=== PATIENT | female | born 1960 | race Caucasian/White ===

== ENCOUNTER → 2018-02-10 | Outpatient (CLI) | payer BC ==
--- NOTE | 2018-02-10 13:55 | RAD ---
EXAM DESCRIPTION: Elbow, right 3 Views CLINICAL HISTORY: 57 years Female, PAIN IN RIGHT ELBOW COMPARISON: None. TECHNIQUE/FINDINGS: AP lateral and oblique right elbow. Small fracture of the anterior rim of the coronoid process of the proximal ulna. Fracture line is 3 mm from the coronoid tip. Longitudinal fracture in the radial aspect of the radial head extending into the radial neck in the distal direction, and the radiocapitellar joint. Anterior and posterior fat pads are displaced. Overall bone density is decreased. No other loose bodies in the joint spaces or soft tissues. IMPRESSION: 1. Slightly fracture of the radial head in the longitudinal direction involving the radial aspect of the radial head and involving the radiocapitellar joint. Anterior posterior fat pad displacement body fusion. 2. Small fracture of the anterior aspect of the coronoid process of the ulna. Electronically signed by: Geoffrey Bazan MD 02/10/2018 1:54 PM CDT
== END ==
LOC: RAD 09:29
PROVIDERS: ATTEND Orthopaedic Surgery
DX: S52.121A Displaced fracture of head of right radius, initial encounter for closed fracture (principal); S52.202A Unspecified fracture of shaft of left ulna, initial encounter for closed fracture

== ENCOUNTER → 2018-02-16 | Outpatient (CLI) | payer BC ==
--- NOTE | 2018-02-16 11:47 | CT ---
Study: CT of the Right Elbow. Indication: RAD HEAD FX Technique: Axial CT of the right elbow was performed without contrast. Coronal and sagittal reformats performed This exam was performed according to our departmental dose-optimization program, which includes automated exposure control, adjustment of the mA and/or kV according to patient size and/or use of iterative reconstruction technique. Radiographs February 10, 2018. Findings: A markedly comminuted radial head fracture noted. There is a dominant fracture fragment involving the majority of the radial head articular surface which is displaced in the posterior direction and lies along the posterior margin of the capitellum. This fragment measures up to 17 mm. Along its anterior/distal margin there is an additional 9 mm fracture fragment. The posterior two thirds of the radial head articular surface are significantly disrupted. No evidence of dislocation at this time. A likely remote ununited fracture of the tip of the coronoid process noted but ultimately a indeterminate. Joint space narrowing and tiny joint line osteophytes noted throughout the elbow with associated moderate size elbow effusion. Subcutaneous edema posterior aspect of the elbow. Impression: Comminuted nondisplaced radial head fracture as detailed above. 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 Electronically signed by: Walt De Jesus MD 02/16/2018 11:45 AM BAGMAN/WOMAN
== END ==
LOC: CT 09:00
PROVIDERS: ATTEND Orthopaedic Surgery
DX: S52.124A Nondisplaced fracture of head of right radius, initial encounter for closed fracture (principal); M19.021 Primary osteoarthritis, right elbow

== ENCOUNTER 2018-02-23 05:43 | Observation (INO) | payer BC ==
--- NOTE | 2018-02-22 08:14 | HP ---
CHIEF COMPLAINT: Right elbow pain. HISTORY OF PRESENT ILLNESS: Lizzette is a 49-year-old female with a history of a fall that occurred on 02/06/18. She had the acute onset of pain in the elbow at that time. She first presented to me on 02/10/18 and we ordered a CT scan. Unfortunately, there has been some difficulty getting a CT scan until recently. The CT scan does show a large fragment of the radial head displaced and lodged slightly posterior. We talked about this and the nature of the injury. We discussed her options. After discussing the risks, benefits and alternatives to operative therapy, the patient has given informed consent for radial head replacement. PAST SURGICAL HISTORY: 1. Thyroidectomy. 2. Nephrectomy. MEDICATIONS: 1. Metformin. 2. Hydrochlorothiazide. 3. Metoprolol. 4. Levothyroxine. 5. Atorvastatin. 6. Omeprazole. 7. Amitriptyline. ALLERGIES: NO KNOWN DRUG ALLERGIES. CODE STATUS: Full code. IMMUNIZATIONS: Up to date. FAMILY HISTORY: None pertinent to today's complaint. SOCIAL HISTORY: The patient does not drink, smoke or use any illicit drugs. REVIEW OF SYSTEMS: Negative except as indicated in the History of Present Illness. PHYSICAL EXAMINATION: VITAL SIGNS: Blood pressure 106/56. Pulse 65. Height 5'3". Weight 170 pounds. MENTAL STATUS: The patient is awake, alert, and is able to give a good history and participate in the physical. The patient is oriented to person, place and time. SKIN: Normal tone and turgor. MUSCULOSKELETAL: She has bruising along the lateral aspect of the elbow. She has difficulty with full extension and flexion is now to about 100 degrees. Sensation is intact. She has full range of motion of the digits as well as the wrist. The compartments of the forearm are soft. IMAGING: X-rays show a comminuted radial head fracture. CT scan with 3D reconstruction does show large articular fragment displaced near the capitellum. ASSESSMENT: 1. Comminuted radial head fracture. PLAN: The plan at this point is for radial head replacement. We have discussed the risks, benefits, and alternatives to that and the patient has given informed consent. #[id number] MTDD
--- NOTE | 2018-02-22 15:27 | RAD ---
EXAM DESCRIPTION: Chest,2 Views CLINICAL HISTORY: SURGICAL PREOP COMPARISON: None TECHNIQUE: PA/lateral FINDINGS: Mass behind the heart is consistent with a hiatal hernia. Right hemidiaphragm is elevated. Heart size is normal with normal pulmonary vascularity. No pleural effusion or pneumothorax. Lungs are clear with no consolidating infiltrate. Lateral view shows intact sternum and T-spine. Degenerative changes are seen in the shoulders. IMPRESSION: No acute process is identified in the chest. Electronically signed by: Cipriano Garcia MD 02/22/2018 3:25 PM TAG MAKER
[2018-02-23] MEDS ORDERED: DEXAMETHASONE INJ 10 MG/ML VIAL ONE (07:00)
[2018-02-23] MEDS ORDERED: PROPOFOL 200 MG/20 ML VIAL IV ONE (07:00)
[2018-02-23] MEDS ORDERED: LIDOCAINE 1% 10 ML VIAL INJ ONE (07:00)
[2018-02-23] MEDS ORDERED: raNITIdine HCL INJ 25 MG/ML VIAL ONE (07:00)
[2018-02-23] MEDS ORDERED: HYDROCORTISONE SOD SUCC INJ 100 MG/2 ML VIAL ONE (07:00)
[2018-02-23] MEDS ORDERED: METOCLOPRAMIDE HCL INJ 10 MG/2 ML VIAL ONE (07:00)
[2018-02-23] MEDS ORDERED: SODIUM CHL 0.9% 100ML MINI-BAG 100 ML IVPB ONE (08:33)
[2018-02-23] MEDS ORDERED: SODIUM CHLORIDE 0.9% 250ML 250 ML ONE ×2 (08:33→20:25)
[2018-02-23] MEDS ORDERED: VANCOMYCIN HCL INJ 1,000 MG VIAL IVPB ONE ×2 (08:33→20:26)
[2018-02-23] MEDS ORDERED: ceFAZolin SODIUM 1 GM VIAL ONE ×2 (08:33→10:02)
[2018-02-23] MEDS ORDERED: LACTATED RINGERS 1,000 ML ONE (08:33)
[2018-02-23] MEDS ORDERED: CYCLOBENZAPRINE HCL 10 MG TAB PO PRN (09:33)
[2018-02-23] MEDS ORDERED: BISACODYL SUPPOSITORY 10 MG PR PRN (09:33)
[2018-02-23] MEDS ORDERED: TEMAZEPAM 15 MG CAP PO PRN (09:33)
[2018-02-23] MEDS ORDERED: ZOLPIDEM TARTRATE 5 MG TAB PO PRN (09:33)
[2018-02-23] MEDS ORDERED: BENZOCAINE-MENTH LOZ (CEPACOL) 1 EA LOZ MT PRN (09:33)
[2018-02-23] MEDS ORDERED: MAGNESIUM HYDROXIDE 30 ML UD PO PRN (09:33)
[2018-02-23] MEDS ORDERED: ACETAMINOPHEN 325 MG TAB PO PRN (09:33)
[2018-02-23] MEDS ORDERED: ALUMINUM & MAGNESIUM HYDROXIDE 30 ML UD PO PRN (09:33)
[2018-02-23] MEDS ORDERED: MORPHINE SULFATE INJ 10 MG/ML VIAL IM PRN (09:38)
[2018-02-23] MEDS ORDERED: HYDROcodone 5MG/APAP 325MG 1 EA TAB PO PRN (09:40)
[2018-02-23] MEDS ORDERED: MIDAZOLAM INJ 2 MG/2 ML VIAL ONE (10:06)
[2018-02-23] MEDS ORDERED: BUPIVACAINE 0.5% 30 ML VIAL INJ ONE (10:06)
[2018-02-23] MEDS ORDERED: BUPIVACAINE LIPOSOME 13.3 MG/ML VIAL INJ ONE (10:06)
[2018-02-23] MEDS: ceFAZolin SODIUM 1 GM VIAL ONE ×2 (11:26→12:35)
[2018-02-23] MEDS: VANCOMYCIN HCL INJ 1,000 MG VIAL IVPB ONE ×2 (11:26→12:35)
[2018-02-23] MEDS ORDERED: ONDANSETRON INJ 4 MG/2 ML VIAL ONE (13:08)
[2018-02-23] MEDS ORDERED: ceFAZolin SODIUM 2 GRAMS PREMI 2 GM in PREMIX BAG 1 BAG IVPB SCH (13:30)
[2018-02-23] MEDS ORDERED: VANCOMYCIN HCL INJ 1,000 MG in SODIUM CHLORIDE 0.9% 250ML 250 ML IVPB SCH (13:30)
[2018-02-23] MEDS ORDERED: ALUM & MAG HYDROX-SIMETHICONE 30 ML UD PO PRN (15:07)
[2018-02-23] MEDS ORDERED: DEXTROSE 50% 25 GM/50 ML SYG IV PRN (15:14)
[2018-02-23] MEDS ORDERED: GLUCAGON INJ 1 MG VIAL SUBCU PRN (15:14)
[2018-02-23] MEDS: INSULIN LISPRO 100 UNITS/ML PEN SUBCU SCH ×4 (15:44→21:08)
--- NOTE | 2018-02-23 17:32 | RAD ---
EXAM DESCRIPTION: Elbow,Right 2 Views CLINICAL HISTORY: 57 years Female, post-op COMPARISON: February 10, 2018. TECHNIQUE: 2 views of the right elbow. FINDINGS: Interval postsurgical changes consistent with replacement of the radial head with metallic hardware. The hardware appears intact. The overlying soft tissues appear grossly unremarkable. The elbow joint appears intact. IMPRESSION: 1. Interval postsurgical changes consistent with replacement right radial head with metallic hardware which appears intact. Electronically signed by: Diogenes Goodman MD 02/23/2018 5:31 PM [facility]
[2018-02-23] MEDS ORDERED: ceFAZolin SODIUM 2 GRAMS PREMI 50 ML IVPB ONE (20:28)
[2018-02-23] MEDS: metFORMIN HCL 500 MG TAB PO SCH (20:40)
[2018-02-23] MEDS: GABAPENTIN 300 MG CAP PO SCH (20:41)
[2018-02-23] MEDS: VANCOMYCIN HCL INJ 1,000 MG in SODIUM CHLORIDE 0.9% 250ML 250 ML IVPB SCH (20:45)
[2018-02-23] MEDS ORDERED: AMITRIPTYLINE HCL 25 MG TAB PO SCH (21:00)
[2018-02-23] MEDS ORDERED: MELATONIN 3 MG TAB PO SCH (21:00)
[2018-02-23] MEDS ORDERED: HYDROCORTISONE 20 MG TAB PO SCH (21:00)
[2018-02-23] MEDS ORDERED: PEGVISOMANT SC SCH (21:00)
[2018-02-23] MEDS ORDERED: CEPHALEXIN MONOHYDRATE 500 MG CAP PO SCH (21:00)
[2018-02-23] MEDS ORDERED: PANTOPRAZOLE SODIUM IV 40 MG VIAL IV ONE (21:53)
[2018-02-23] MEDS ORDERED: ALUM & MAG HYDROX-SIMETHICONE 30 ML, LIDOCAINE VISCOUS 2% 15 ML PO ONE ×2 (21:54)
[2018-02-23] MEDS ORDERED: LIDOCAINE HCL 2% (MOUTH-THROAT) 15 ML UD ONE (22:07)
[2018-02-23] MEDS: ceFAZolin SODIUM 2 GRAMS PREMI 2 GM in PREMIX BAG 1 BAG IVPB SCH (23:06)
--- NOTE | 2018-02-23 23:46 | CONS ---
DATE OF CONSULTATION: 02/23/18 SUPERVISING PHYSICIAN: Moe Palencia M.D. REASON FOR CONSULTATION: Radial head replacement right elbow. CHIEF COMPLAINT: Comminuted radial head fracture status post radial head replacement. HISTORY OF PRESENT ILLNESS: Ms. Walton is a 49 year-old female patient that fell on 01/29/18. She slipped on some gravel in a parking lot and had the acute onset of elbow pain. She then went to the [facility] where she was at in [place], [place]. She then presented to Dr. Young on 02/10/18 for further management at which time CT was ordered showing a large fragment of the radial head displaced and lodged slightly posterior. At that time plans were discussed for surgical intervention for radial head replacement. The patient was admitted today for a radial head replacement. She had no intraoperative complications. She had a supraclavicular block and was seen in the immediate postoperative state. She was in stable condition in no acute distress. PAST MEDICAL HISTORY: 1. 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 2. Recurrence of pituitary tumor in 2006. 3. Gamma knife procedure in 2008. 4. 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 5. Hypertension. 6. 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 PAST SURGICAL HISTORY: 1. Partial left knee replacement in 2015. 2. Right nephrectomy in 2011. 3. Thyroidectomy in 2011. 4. Cervical ganglion excision in 2011. HOME MEDICATIONS: 1. Somatuline Depot 20 mg subcue monthly. 2. Potassium 99 mg as needed daily. 3. Tramadol 50 mg daily. 4. Somavert 40 mg at bedtime. 5. Zanaflex 4 mg at bedtime. 6. Lipitor 10 mg daily. 7. Omeprazole 40 mg daily. 8. Metformin 1,000 b.i.d. 9. Amitriptyline 50 mg at bedtime. 10. Hydrocortisone 5 mg at bedtime. 11. Neurontin 300 mg t.i.d. 12. Hydrocortisone 10 mg at breakfast. 13. Toprol XL 50 mg daily. 14. Glimepiride 4 mg daily. 15. Levothyroxine 150 mg at bedtime. 16. Melatonin 6 mg at bedtime. 17. Magnesium 250 mg daily. 18. Cinnamon 500 mg daily. 19. Cranberry supplement 4200 mg t.i.d. 20. Vitamin E 400 units daily. ALLERGIES: CELEBREX, LATEX, FEXOFENADINE AND TAPE. FAMILY HISTORY: Father is unknown as he in a car accident at a young age. Mother at 75 from breast cancer. She has 1 sister who has breast cancer. She has 1 niece who has stage 4 breast cancer. She has 2 children who are healthy. SOCIAL HISTORY: The patient lives in [place], [place]. She is . She works as a lead painter. She does not drink or smoke. REVIEW OF SYSTEMS: CONSTITUTIONAL: Denies any fevers, chills, body aches, general malaise, unintentional weight loss. HEENT: No headaches, vision changes other than the known blindness in the left eye. No ear aches, sore throat, nasal congestion. RESPIRATORY: Denies any coughing, wheezing or shortness of breath. CARDIOVASCULAR: Denies any chest pains, palpitations or syncopal episodes. GASTROINTESTINAL: Denies any nausea, vomiting, diarrhea, abdominal pains. GENITOURINARY: Denies any dysuria, hematuria or polyuria or other urinary symptoms. NEUROLOGIC: Denies any focal deficits, seizure activity, headaches, syncopal episodes, ataxia. PHYSICAL EXAMINATION: VITAL SIGNS: Temperature 98.4, pulse 82, blood pressure 134/88, respirations 16 , satting 96% on room air. Admission weight 76.5 kg. HEENT: Tympanic membranes are clear bilaterally. Oropharynx is pink and moist with no lesions. NECK: Supple, non-tender with full range of motion. No jugular venous distention. CHEST: Lungs were clear to auscultation bilaterally without any rhonchi, wheezing or rales. HEART: Regular rate and rhythm without appreciable murmurs, gallops, or rubs. ABDOMEN: Soft, non-tender. Positive bowel sounds. EXTREMITIES: Right arm is in a sling with dressing in place on the elbow. She has numbness from the shoulder down secondary to a block. No clubbing, cyanosis or edema. NEUROLOGIC: She is alert and oriented times three. Cranial nerves II-XII are grossly intact. Facial features were symmetrical. Extraocular movements are within normal limits. There are no notable facial paresthesias. LABORATORY: CBC preoperatively showed white count 10,400, hemoglobin 13.8, hematocrit 42.5, platelet count 368,000. Differential did have an early left shift. Chemistries showed normal electrolytes with BUN 21, creatinine 0.93. Blood sugar preoperatively on the 13 was 216, preoperatively was 107, postoperatively was 127. Calcium 9.9. Urinalysis showed 100 glucose and trace blood, otherwise within normal limits. MICROBIOLOGY: MRSA surveillance culture is pending. RADIOLOGY: Chest x-ray preoperatively on the 13 per radiology interpretation showed no acute process identified in the chest. Elbow x-ray postoperative per radiology interpretation showed interval post surgical changes consistent with replacement of right radial head with metallic hardware which appears intact. ASSESSMENT: 1. Comminuted radial head fracture status post right radial head replacement, postoperative day 0 with surgery performed by Dr. Shaan Young, orthopedic surgeon. 2. Diabetes mellitus type 2 on oral therapy. 3. Hypertension. 4. History of pituitary adenomas initially in 1997 with recurrence in 2006 treated with gamma knife in 2008. 5. Hypothyroidism surgical induced status post thyroidectomy. 6. History of right nephrectomy in 2011. PLAN: The patient will be placed in observation tonight with close monitoring. Will have her on sliding scale a.c. and h.s. Will resume her home medications as appropriate once those have been updated and verified. Will anticipate length of stay to be 1 to 2 days with probable discharge tomorrow to continue with outpatient physical therapy. She will have physical therapy management while here in the hospital. Will defer further management and pain management to Dr. Young postoperatively. Until discharge and transition to outpatient management will continue to monitor and treat as needed. #[id number] [facility]
[2018-02-23] MEDS ORDERED: RANITIDINE HCL IVPB ONE (23:55)
[2018-02-23] MEDS ORDERED: SODIUM CHLORIDE 0.9% IVPB ONE (23:55)
[2018-02-24] MEDS ORDERED: raNITIdine HCL INJ 25 MG/ML VIAL ONE
[2018-02-24] MEDS ORDERED: SODIUM CHLORIDE 0.9% 50ML 50 ML ONE
[2018-02-24] MEDS ORDERED: HYDROCORTISONE 20 MG TAB PO SCH ×3 (05:00→13:00)
[2018-02-24] MEDS ORDERED: ceFAZolin SODIUM 2 GRAMS PREMI 50 ML IVPB ONE (05:00)
[2018-02-24 05:43] VITALS: O2SAT 96
[2018-02-24] MEDS: ceFAZolin SODIUM 2 GRAMS PREMI 2 GM in PREMIX BAG 1 BAG IVPB SCH (06:32)
[2018-02-24] MEDS: INSULIN LISPRO 100 UNITS/ML PEN SUBCU SCH ×2 (08:07→08:53)
[2018-02-24] MEDS ORDERED: SODIUM CHLORIDE 0.9% 250ML 250 ML ONE (08:13)
[2018-02-24] MEDS ORDERED: VANCOMYCIN HCL INJ 1,000 MG VIAL IVPB ONE (08:15)
[2018-02-24] MEDS: metFORMIN HCL 500 MG TAB PO SCH (08:33)
[2018-02-24] MEDS: VANCOMYCIN HCL INJ 1,000 MG in SODIUM CHLORIDE 0.9% 250ML 250 ML IVPB SCH (08:34)
[2018-02-24] MEDS: GABAPENTIN 300 MG CAP PO SCH (08:34)
[2018-02-24] MEDS ORDERED: METOPROLOL TARTRATE 25 MG TAB PO SCH (09:00)
[2018-02-24] MEDS ORDERED: GLIMEPIRIDE 2 MG TAB PO SCH (09:00)
[2018-02-24] MEDS ORDERED: ATORVASTATIN 10 MG TAB PO SCH (09:00)
[2018-02-24] MEDS ORDERED: MAGNESIUM 250 MG PO SCH (09:00)
[2018-02-24] MEDS ORDERED: LEVOTHYROXINE SODIUM 0.075 MG TAB PO SCH (09:00)
[2018-02-24] MEDS ORDERED: OMEPRAZOLE CAP 20 MG CAP PO SCH (09:00)
[2018-02-24 09:11] VITALS: BP 124/81; TEMP 98.1
--- NOTE | 2018-02-24 10:09 | PN ---
DATE: 02/23/18 POSTOPERATIVE CHECK SUBJECTIVE: Ms. Walton is doing well with no pain. OBJECTIVE: Afebrile. Vital signs stable. Dressing is clean, dry and intact. ASSESSMENT: Status post radial head replacement. PLAN: The plan at this point is for her to begin flexion and extension exercises tomorrow. #[id number] MTDD
--- NOTE | 2018-02-24 10:12 | PN ---
DATE: 02/24/18 SUBJECTIVE: Ms. Walton is doing well and does not have any pain. OBJECTIVE: She has full flexion and extension of the digits as well as the wrist. ASSESSMENT: Status post radial head replacement. PLAN: The plan at this point is for her to be discharged and I will see her back in the clinic tomorrow. #[id number] MTDD
--- NOTE | 2018-02-24 10:49 | OP ---
DATE OF PROCEDURE: 02/23/18 PREOPERATIVE DIAGNOSIS: 1. Comminuted radial head fracture. POSTOPERATIVE DIAGNOSIS: 1. Comminuted radial head fracture. PROCEDURE: 1. Radial head replacement. SURGEON: Shaan Young MD BLACK TOP ROLLER: Geoffrey Ni CST, SA-C ANESTHESIA: General anesthesia. COMPLICATIONS: None. FINDINGS: 1. Comminuted humeral head fracture with displaced fragments. 2. Osteoporotic bone. INDICATION: Ms. Walton has a history of fall with acute onset of pain. Secondary to the pain, x-rays were taken and revealed a comminuted fracture. Following that, a CT scan did demonstrate multiple large fragments which were displaced and there was no likelihood that any type of open reduction and internal fixation could be performed. Following the full evaluation of that, we discussed the risks, benefits and alternatives to operative therapy. Informed consent was obtained. PROCEDURE: The patient was brought to the Operating Room and placed in supine position. General anesthesia was induced and the patient's arm was sterilely prepped and draped. Following prepping and draping, an incision was made from the lateral epicondylar region extending distally and in line with Karissa's tubercle. Dissection was carried down to the common extensor mechanism and an incision was made in Damon's interval. Blunt dissection was used to expose the capsule. The capsule and the annular ligament were transected and the joint was exposed. Following that, multiple fragments were removed. A preliminary cut was made at the radial neck. After making the cut, sequential reaming was used and a size 7 fit with excellent cortical contact. A size 22 head and 4 mm collar were appropriate fit and trial was used. After placement of the trial, the elbow was taken through a range of motion under fluoroscopic imaging. It did not appear at the time to be over stuffed and appeared to be stable with good range of motion. The trial component was removed and the wound was very thoroughly irrigated. Final component was impacted into place with the laser line facing lateral with the hand in neutral rotation. The elbow was reduced and taken through a range of motion. Fluoroscopic images were taken at that time. It did appear as though the elbow was well reduced and it went through range of motion without any type of impingement. The wound was very thoroughly irrigated and the lateral capsule was reapproximated. The ECRB and the EDC were reapproximated. The wound was closed with a combination of interrupted and running subcuticular stitches. Sterile dressings were placed. The patient was place in a sling, awoken from anesthesia and taken to Recovery. POSTOPERATIVE PLAN: She will be doing gentle, but full flexion and extension range of motion. COMPONENTS: Acumed radial head system, size 22 head, 4 mm collar and size 7 stem. #[id number] MTDD
--- NOTE | 2018-03-04 16:52 | DS ---
ADMISSION DIAGNOSIS: 1. Comminuted radial head fracture. DISCHARGE DIAGNOSIS: 1. Postoperative day #1.comminuted radial head fracture. REASON FOR HOSPITALIZATION: Lizzette is a 49-year-old female with a history of a fall that occurred on 02/06/18. She had the acute onset of pain in the elbow at that time. She first presented to me on 02/10/18 and we ordered a CT scan. Unfortunately, there has been some difficulty getting a CT scan until recently. The CT scan does show a large fragment of the radial head displaced and lodged slightly posterior. We talked about this and the nature of the injury. We discussed her options. After discussing the risks, benefits and alternatives to operative therapy, the patient has given informed consent for radial head replacement. LABORATORY STUDIES: White count 2,400, hemoglobin 13.8, hematocrit 42.5, platelet count 360,000. Differential did show a left shift. Chemistries: blood sugars ranged from 107 to 292. Preoperatively, chemistries showed sodium 137, potassium 4.3, calcium 9.9. Urinalysis showed 100 glucose, trace intact blood. MICROBIOLOGY: MRSA surveillance culture showed to be negative MRSA. Medication consultation: Hospitalist services, please see that note for details. Procedures: Radial head replacement. Please see Dr. Young's operative note for details. HOSPITAL COURSE: Ms. Walton was admitted on 02/23/18 for elective total right radial head replacement secondary to a complicated fracture. She had no intraoperative complications and followed postoperatively without any complications. She was able to be transitioned to outpatient management without any complications. PLAN: Ms. Walton is discharged on 02/24/18 with instructions to followup with Dr. Young as scheduled on 02/24/18. She was to resume her home medications as instructed and to followup with physical therapy as directed. Will manage as postoperative directions as provided at discharge. All her medications to be resumed as prior to discharge. No new medications are prescribed at discharged. Disposition: Patient is discharged home to care of family. Condition on discharge was stable and improved. #[id number] MTDD
== END 2018-02-24 12:30 | disposition home or self-care (01) ==
LOC: AMB 05:43 → MS 13:45
PROVIDERS: ADMIT Orthopaedic Surgery; ATTEND Nurse Practitioner Family
DX: S52.121A Displaced fracture of head of right radius, initial encounter for closed fracture (principal); E11.9 Type 2 diabetes mellitus without complications; I10 Essential (primary) hypertension; D49.7 Neoplasm of unspecified behavior of endocrine glands and other parts of nervous system; E22.0 Acromegaly and pituitary gigantism; E89.0 Postprocedural hypothyroidism; M81.0 Age-related osteoporosis without current pathological fracture; W01.0XXA Fall on same level from slipping, tripping and stumbling without subsequent striking against object, initial encounter; Y93.01 Activity, walking, marching and hiking; Y92.481 Parking lot as the place of occurrence of the external cause; Z79.84 Long term (current) use of oral hypoglycemic drugs; Z79.52 Long term (current) use of systemic steroids; Z79.899 Other long term (current) drug therapy; Z88.8 Allergy status to other drugs, medicaments and biological substances; Z91.040 Latex allergy status; Z91.048 Other nonmedicinal substance allergy status; Z90.5 Acquired absence of kidney
CPT/HCPCS: 01740; 96366; 96367; 96365; 96375 ×2; 96376; 96372; J0690 ×5; J2765; J2405; J3490; A4216; J7050 ×4; J3370 ×4; J1100; J2250; J2780 ×2; J1815; J1720; J7120; 80048; 82948 ×6; 36415 ×2; 81001; 85025; 36416 ×5; 87070; 71046; 76000; 73070; 24366; 97110 ×2; G8978; G8979; 97162; 93005 ×2

== ENCOUNTER → 2018-07-11 | Outpatient (CLI) | payer BC ==
--- NOTE | 2018-07-11 17:31 | RAD ---
EXAM DESCRIPTION: Pelvis,2 or More Views CLINICAL HISTORY: 58 years Female, M25.552. Left hip pain. COMPARISON: January 29, 2014. FINDINGS: Mild diffuse osteopenia of the visualized bones noted. The pelvic ring is grossly intact. Moderate to severe bilateral SI joint and bilateral hip joint degenerative changes are noted. The overlying soft tissues appear grossly unremarkable. IMPRESSION: 1. Moderate to severe bilateral hip joint osteoarthritic changes right worse than left. 2. Moderate bilateral SI joint degenerative changes. 3. Pelvic ring is grossly intact. Electronically signed by: Diogenes Goodman MD 07/11/2018 5:29 PM CDT
--- NOTE | 2018-07-11 17:34 | RAD ---
EXAM DESCRIPTION: Hip,Left 2 Views CLINICAL HISTORY: 58 years Female, M25.551 left hip pain. COMPARISON: None available. FINDINGS: Diffuse osteopenia of the visualized bones noted. No acute fracture or dislocation. The femoral head is well contained in the acetabular fossa. Mild osteoarthritic changes of the hip joint noted. The overlying soft tissues appear grossly unremarkable. IMPRESSION: 1. No acute fracture or dislocation. 2. Mild left hip osteoarthritic changes. Electronically signed by: Diogenes Goodman MD 07/11/2018 5:31 PM CDT
--- NOTE | 2018-07-11 17:36 | RAD ---
EXAM DESCRIPTION: Hip,Right 2 Views CLINICAL HISTORY: 58 years Female, M25.551, M25.552. Right hip pain. COMPARISON: None available. FINDINGS: Diffuse osteopenia of the visualized bones noted.No acute fracture or dislocation. The right femoral head is well contained in the acetabular fossa. Moderate osteoarthritic changes are noted at the hip joint. Mild to moderate right SI joint osteoarthritic changes are also noted. The soft tissues appear grossly unremarkable. IMPRESSION: 1. No acute fracture or dislocation. 2. Moderate right hip osteoarthritic changes. Electronically signed by: Diogenes Goodman MD 07/11/2018 5:33 PM CDT
== END ==
LOC: RAD 08:30
PROVIDERS: ATTEND Orthopaedic Surgery
DX: M16.11 Unilateral primary osteoarthritis, right hip (principal); M16.12 Unilateral primary osteoarthritis, left hip; M25.551 Pain in right hip; M25.552 Pain in left hip

== ENCOUNTER → 2018-08-02 | Outpatient (CLI) | payer BC ==
--- NOTE | 2018-08-05 08:09 | MRI ---
Study: MRI of the Left Tibia/Fibula. Indication: RUPTURE OF MUSCLE Technique: Multiplanar, multi sequence MRI of the left tibial/fibula was obtained without intravenous contrast. Comparison: Radiographs July 11, 2018. Findings: Effectively full-thickness tearing of the left gluteus medius tendon insertion from the greater trochanter noted with proximal retraction of the tendon fibers by up to 2.3 cm. Less pronounced partial thickness tearing of the left gluteus minimus tendon noted without significant tendon retraction. Moderate volume left greater trochanter bursal edema. Intramuscular edema noted within the left quadratus femoris muscle belly as well. Tendinosis of the right gluteus minimus/medius tendon insertions mild attenuation and mild right greater trochanter bursal edema. No acute fracture or osteonecrosis. Within the posterior superior right acetabulum as best visualized on coronal T1 image 18 there is an indeterminate somewhat ill-defined 17 mm focus of diminished T1 and slightly elevated T2 signal. Moderate pubic symphysis osteoarthritis. Lower lumbar disc disease. At least moderate bilateral hip osteoarthritis. Grade 3 and mild grade 4 chondral loss of both joints. Small to moderate joint line osteophytes. Small bilateral hip effusions, right greater than left. Tendinosis bilateral hamstring tendon origins. Impression: Acute high-grade partial, near full-thickness tearing left gluteus medius tendon insertion with less pronounced partial-thickness tearing of the left gluteus minimus tendon. Moderate left greater trochanter bursal edema present. At least moderate bilateral hip osteoarthritis without acute fracture or osteonecrosis. Indeterminate focus of marrow signal within the right posterior superior acetabulum. Further characterization with bone scan with SPECT imaging recommended. Additional findings as above. Electronically signed by: Walt De Jesus MD 08/05/2018 8:07 AM CDT
== END ==
LOC: MRI 10:22
PROVIDERS: ATTEND Orthopaedic Surgery
DX: S76.312A Strain of muscle, fascia and tendon of the posterior muscle group at thigh level, left thigh, initial encounter (principal); M16.12 Unilateral primary osteoarthritis, left hip

== ENCOUNTER → 2018-09-21 | Outpatient (CLI) | payer BC | LOC: RESP 10:43 | PROVIDERS: ATTEND Orthopaedic Surgery | DX: Z01.818 Encounter for other preprocedural examination (principal) ==

== ENCOUNTER → 2018-10-03 | Outpatient (CLI) | payer BC ==
--- NOTE | 2018-10-03 13:28 | RAD ---
EXAM DESCRIPTION: Elbow,Left 3 Views CLINICAL HISTORY: 58 years Female, PAIN COMPARISON: None available. FINDINGS: The visualized bones are well-mineralized. Nondisplaced fracture of the radial head is identified with associated joint effusion. Degenerative changes are also identified in the elbow joint. The soft tissues appear grossly unremarkable. IMPRESSION: Nondisplaced fracture of the radial head with associated joint effusion. Left elbow osteoarthritis. Electronically signed by: Adrienne Yeung MD 10/03/2018 1:25 PM CDT
== END ==
LOC: RAD 12:09
PROVIDERS: ATTEND Orthopaedic Surgery
DX: S52.122A Displaced fracture of head of left radius, initial encounter for closed fracture (principal); M19.022 Primary osteoarthritis, left elbow

== ENCOUNTER 2018-10-05 05:37 | Day surgery (SDC) | payer BC ==
--- NOTE | 2018-10-04 08:05 | HP ---
CHIEF COMPLAINT: 1. Left hip pain. 2. Left elbow pain. HISTORY OF PRESENT ILLNESS: Lizzette is a 58-year-old female with a history of pain in the left hip. She has had this evaluated in the past and it does apparently show on MRI an abductor muscle rupture. Because of the presence of the rupture as well as her failure of conservative measures, she has requested operative intervention for that. She recently has had a fall in which she had the acute onset of pain in the left elbow. It was initially x-rayed and she was told there was no evidence of fracture. She is complaining of pain in the elbow today with certain motions and rotational motion. She denies any other injury associated with this fall, denies any radiation of pain and denies any neurologic symptoms. The pain is sharp in nature and localized to the area of the labral head. PAST SURGICAL HISTORY: 1. Radial head replacement. 2. Thyroidectomy. 3. Brain tumor removal. 4. Nephrectomy. MEDICATIONS: 1. Vitamin E. 2. Multiple different other vitamins 3. Keflex. 4. Levothyroxine. 5. Metoprolol. 6. Glimepiride. 7. Hydrocortisone. 8. Gabapentin. 9. Nortriptyline. 10. Metformin. 11. Tizanidine. 12. Atorvastatin. ALLERGIES: MYRTLE. CODE STATUS: Full code. IMMUNIZATIONS: Up to date. SOCIAL HISTORY: The patient does not drink, smoke or use any illicit drugs. FAMILY HISTORY: None pertinent to today's complaint. REVIEW OF SYSTEMS: Negative except as indicated in the History of Present Illness. PHYSICAL EXAMINATION: VITAL SIGNS: Blood pressure 132/81. Pulse 77. Height 5'3". Weight 194 pounds. MENTAL STATUS: The patient is awake, alert, and is able to give a good history and participate in the physical. The patient is oriented to person, place and time. SKIN: Normal tone and turgor. HEENT: Normocephalic, atraumatic. Pupils equal, round and reactive. Mucosal membranes are moist. NECK: Normal range of motion. No thyromegaly, no lymphadenopathy. CHEST: Normal respiratory excursion. CARDIAC: Regular rate and rhythm. No murmurs, rubs or gallops. MUSCULOSKELETAL: The right upper extremity shows full motion in the shoulder. She lacks 25 to 30 degrees of extension at the elbow. She has a well-healed wound overlying the lateral aspect of the elbow. She has no pain with range of motion of the elbow with flexion. She has full range of motion of the wrist and the digits. There is no deformity and no crepitus with range of motion. The left upper extremity shows full range of motion of the shoulder, wrist and digits. She has pain with range of motion of the elbow, however, she does maintain full extension. She has flexion that does cause some pain, but seems to be near full. She has full cutting machine operator strength. There is no deformity. She has pain with palpation of the radial head. There is no swelling and all compartments are soft. There is no malalignment. The right lower extremity shows full range of motion of the hip without pain. She has full range of motion of the knee, ankle and digits. Strength is 5/5. There is no malalignment. Sensation is intact. It is warm and well perfused. The left lower extremity shows full range of motion of the hip, knee, ankle and digits. She is very tender to palpation laterally. She has some decreased strength in abduction. The entire extremity is warm and well perfused. She does walk with a slightly antalgic gait. IMAGING: Imaging of the hip shows evidence of a tear of the abductor musculature. New x-rays of the elbow were taken today and do show a very minimally displaced radial head fracture. ASSESSMENT: 1. Abductor musculature rupture. 2. Radial head fracture. PLAN: The plan at this point is for abductor musculature repair. From the postoperative standpoint, we are going to have her utilizing a platform walker. We have discussed the risks, benefits, and alternatives to that and the patient has given informed consent. #[id number] [facility]
[2018-10-05] MEDS ORDERED: ceFAZolin SODIUM 1 GM VIAL ONE ×2 (06:15→09:01)
[2018-10-05] MEDS ORDERED: SODIUM CHL 0.9% 100ML MINI-BAG 100 ML IVPB ONE (06:15)
[2018-10-05] MEDS ORDERED: VANCOMYCIN HCL INJ 1,000 MG VIAL IVPB ONE ×2 (06:15→09:02)
[2018-10-05] MEDS ORDERED: LACTATED RINGERS 1,000 ML ONE (06:15)
[2018-10-05] MEDS ORDERED: SODIUM CHLORIDE 0.9% 250ML 250 ML ONE (06:16)
[2018-10-05] MEDS ORDERED: ROCURONIUM BROMIDE 10 MG/ML VIAL ONE (08:43)
[2018-10-05] MEDS ORDERED: fentaNYL CITRATE INJ 50 MCG/ML AMP ONE (08:44)
[2018-10-05] MEDS ORDERED: MIDAZOLAM INJ 2 MG/2 ML VIAL ONE (08:45)
[2018-10-05] MEDS ORDERED: ONDANSETRON INJ 4 MG/2 ML VIAL ONE (08:49)
[2018-10-05] MEDS ORDERED: BUPIVACAINE 0.5% 30 ML VIAL INJ ONE (09:02)
[2018-10-05] MEDS ORDERED: BUPIVACAINE LIPOSOME 13.3 MG/ML VIAL INJ ONE (09:02)
== END 2018-10-05 09:40 | disposition home or self-care (01) ==
LOC: AMB 05:37
PROVIDERS: ATTEND Orthopaedic Surgery
DX: S76.012A Strain of muscle, fascia and tendon of left hip, initial encounter (principal); S52.122A Displaced fracture of head of left radius, initial encounter for closed fracture; E89.0 Postprocedural hypothyroidism; Z90.5 Acquired absence of kidney; Z96.89 Presence of other specified functional implants; Z88.8 Allergy status to other drugs, medicaments and biological substances; Z79.84 Long term (current) use of oral hypoglycemic drugs; Z79.899 Other long term (current) drug therapy; Z53.9 Procedure and treatment not carried out, unspecified reason

== ENCOUNTER → 2019-06-20 | Outpatient (CLI) | payer BC | DX: E11.51 Type 2 diabetes mellitus with diabetic peripheral angiopathy without gangrene (principal) ==